=== PATIENT | female | born 2000 | race Caucasian/White ===

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

== ENCOUNTER 2022-03-18 17:27 | Emergency (ER) | payer BC, OTHER ==
[~2022-03-18 17:27] MED LIST: FLONASE ALLERG9.9 ML NS; PROVENTIL0.09 MG/A1 IH; QVAR8.7 G1 IH
[2022-03-18 17:35] VITALS: BP 130/79
[2022-03-18] MEDS ORDERED: ISIBLOOM 28 DA1 EACH PO (17:36)
== END 2022-03-18 18:01 | disposition home or self-care (01) ==
LOC: ED 17:27
DX: T63.461A Toxic effect of venom of wasps, accidental (unintentional), initial encounter (principal); Z28.310 Unvaccinated for COVID-19